=== PATIENT | male | born 1960 | race American Indian/Alaskan Native ===

== ENCOUNTER 2017-07-18 17:35 | Inpatient (IN) | payer OTHER ==
[2017-07-18] MEDS ORDERED: ASPIRIN PO ONE (18:38)
[2017-07-18 19:04] LABS: Basophils % (Auto) 0.3 % (0.0-1.8); Eosinophils % (Auto) 0.1 % (0.0-4.3); Hematocrit 44.2 % (35.5-45.6); Hemoglobin 14.5 gm/dl (11.8-15.2); Lymphocytes # (Auto) 0.5 K/mm3 (1.2-5.4); Lymphocytes % (Auto) 9.1 % (13.4-35.0); Mean Corpuscular HGB Conc 33 % (32-34); Mean Corpuscular Hemoglobin 32 pg (28-32); Mean Corpuscular Volume 97 fl (84-94); Monocytes # (Auto) 0.2 K/mm3 (0.0-0.8); Monocytes % (Auto) 3.9 % (0.0-7.3); Platelet Count 168 K/mm3 (140-440); Red Blood Count 4.55 M/mm3 (3.65-5.03); Red Cell Distribution Width 14.3 % (13.2-15.2)
[2017-07-18 19:25] LABS: Alanine Aminotransferase 14 units/L (7-56); Albumin 4.2 g/dL (3.9-5); BUN/Creatinine Ratio 18; Blood Urea Nitrogen 11 mg/dL (9-20); Calcium 8.1 mg/dL (8.4-10.2); Hemolysis Index 18; Lipase 53 units/L (13-60)
[2017-07-18] MEDS ORDERED: TYLENOL PO ONE (19:33)
--- NOTE | 2017-07-18 19:35 | Emergency Department Report ---
Chief Complaint: Chest Pain Stated Complaint: FLU LIKE SYMPTOMS Time Seen by Provider: 07/18/17 19:33 - HPI History of Present Illness: 57-year-old male presents with right-sided chest pain with cough. Pain occurs with inspiration. He also has mild nondescriptive abdominal pain. History of alcoholism. Last drink of alcohol last night - Exam Vital Signs: Vital Signs 07/18/17 18:29 Temperature 98.4 F Pulse Rate 80 Respiratory 18 Rate Blood Pressure 123/83 O2 Sat by Pulse 100 Oximetry MSE screening note: Focused history and physical exam performed. Due to findings the following was ordered: ED Medical Decision Making - Lab Data Result diagrams: 07/18/17 18:44 07/18/17 18:44 ED Disposition for MSE Condition: Stable
[2017-07-18 20:08] LABS: Bacteria,Urine 1+ /HPF (Negative); Bilirubin,Urine NEG (Negative); Blood,Urine MOD (Negative); Color,Urine Yellow (Yellow); Nitrite,Urine NEG (Negative); Protein,Urine <15 mg/dL mg/dL (Negative); Urobilinogen,Urine < 2.0 mg/dL (<2.0)
--- NOTE | 2017-07-18 21:39 | XRay Report ---
FINAL REPORT PROCEDURE: XR CHEST ROUTINE 2V TECHNIQUE: AP lateral chest x-ray HISTORY: chest pain COMPARISON: No prior studies are available for comparison. FINDINGS: Diffuse pulmonary emphysema with pleural thickening and or effusion left lower lung zone left lower lateral chest. Possible pleural mass or concatenation of rib shadows left lower lateral chest area measuring 1 x 3 centimeter. No prior x-rays on file. Consider followup CT chest. IMPRESSION: Pleural effusion and/or thickening left lower lung zone. Possible pleural based mass in the left lower lateral lung zone. No prior chest x-ray on file. Consider followup CT chest with without IV contrast
--- NOTE | 2017-07-18 21:54 | Emergency Department Report ---
HPI - General Chief Complaint: Chest Pain Time Seen by Provider: 07/18/17 19:33 - HPI HPI: Room 5 The patient is a 57-year-old male presenting with chief complaint of chest pain. The patient states yesterday he developed substernal chest pain that has been constant with a pleuritic component. The patient states his chest pain associated with shortness of breath, nausea and diaphoresis. Patient denies vomiting, fever or cough. Patient denies any recent flights or long car trips. The patient currently does his pain score of 5/10. The patient states he's never had a stress test or cardiac catheterization Location: Chest Duration: [See above] Quality: Sharp Severity:5/10 Modifying factors: [see above] Context: [see above] Mode of transportation: [not driving] ED Past Medical Hx - Past Medical History Hx Psychiatric Treatment: Yes (depression,alcohol abuse) Additional medical history: right knee - Surgical History Additional Surgical History: Right knee surgery, left chest tube secondary to traumatic pneumothorax - Family History Family history: no significant - Social History Smoking Status: Current Every Day Smoker (1/2 pack per day) Substance Use Type: None (denies illicit drug use), Alcohol (daily) - Medications Home Medications: Home Medications Medication Instructions Recorded Confirmed Last Taken Type No Known Home Medications [No 07/18/17 07/18/17 Unknown History Reported Home Medications] ED Review of Systems ROS: Stated complaint: FLU LIKE SYMPTOMS Other details as noted in HPI Constitutional: denies: fever Respiratory: shortness of breath Cardiovascular: chest pain Gastrointestinal: nausea. denies: vomiting Physical Exam - Physical Exam Vital Signs: Vital Signs 07/18/17 07/18/17 18:29 19:43 Temperature 98.4 F Pulse Rate 80 Respiratory 18 18 Rate Blood Pressure 123/83 O2 Sat by Pulse 100 Oximetry Physical Exam: GENERAL: The patient is well-developed well-nourished male lying on stretcher not appearing to be in acute distress. [] HEENT: Normocephalic. Atraumatic. Extraocular motions are intact. Patient has moist mucous membranes. NECK: Supple. Trachea midline CHEST/LUNGS: Clear to auscultation. There is no respiratory distress noted. HEART/CARDIOVASCULAR: Regular. There is no tachycardia. There is no gallop rub or murmur. ABDOMEN: Abdomen is soft, nontender. Patient has normal bowel sounds. There is no abdominal distention. SKIN: There is no rash. There is no edema. There is no diaphoresis. NEURO: The patient is awake, alert, and oriented. The patient is cooperative. The patient has normal speech MUSCULOSKELETAL: There is no evidence of acute injury. ED Course Vital Signs 07/18/17 07/18/17 18:29 19:43 Temperature 98.4 F Pulse Rate 80 Respiratory 18 18 Rate Blood Pressure 123/83 O2 Sat by Pulse 100 Oximetry ED Medical Decision Making - Lab Data Result diagrams: 07/18/17 18:44 07/18/17 18:44 Laboratory Tests 07/18/17 07/18/17 07/18/17 18:44 18:44 18:44 WBC 5.7 RBC 4.55 Hgb 14.5 Hct 44.2 MCV 97 H MCH 32 MCHC 33 RDW 14.3 Plt Count 168 Lymph % (Auto) 9.1 L Bland % (Auto) 3.9 Eos % (Auto) 0.1 Baso % (Auto) 0.3 Lymph # 0.5 L Bland # 0.2 Eos # 0.0 Baso # 0.0 Seg Neutrophils % 86.6 H Seg Neutrophils # 4.9 D-Dimer Sodium 138 Potassium 4.6 Chloride 99.7 Carbon Dioxide 23 Anion Gap 20 BUN 11 Creatinine 0.6 L Estimated GFR > 60 BUN/Creatinine Ratio 18 Glucose 86 Calcium 8.1 L Total Bilirubin 0.20 AST 27 ALT 14 Alkaline Phosphatase 89 Total Creatine Kinase Troponin T < 0.010 Total Protein 7.5 Albumin 4.2 Albumin/Globulin Ratio 1.3 Lipase 53 Urine Color Urine Turbidity Urine pH Ur Specific [place] Urine Protein Urine Glucose (UA) Urine Ketones Urine Blood Urine Nitrite Urine Bilirubin Urine Urobilinogen Ur Leukocyte Esterase Urine WBC (Auto) Urine RBC (Auto) U Epithel Cells (Auto) Urine Bacteria (Auto) 07/18/17 07/18/17 07/18/17 19:50 21:40 21:49 WBC RBC Hgb Hct MCV MCH MCHC RDW Plt Count Lymph % (Auto) Bland % (Auto) Eos % (Auto) Baso % (Auto) Lymph # Bland # Eos # Baso # Seg Neutrophils % Seg Neutrophils # D-Dimer Sodium Potassium Chloride Carbon Dioxide Anion Gap BUN Creatinine Estimated GFR BUN/Creatinine Ratio Glucose Calcium Total Bilirubin AST ALT Alkaline Phosphatase Total Creatine Kinase 277 H Troponin T < 0.010 Total Protein Albumin Albumin/Globulin Ratio Lipase Urine Color Yellow Urine Turbidity Clear Urine pH 6.0 Ur Specific [place] 1.032 H Urine Protein <15 mg/dl Urine Glucose (UA) >=500 Urine Ketones Neg Urine Blood Mod Urine Nitrite Neg Urine Bilirubin Neg Urine Urobilinogen < 2.0 Ur Leukocyte Esterase Neg Urine WBC (Auto) 1.0 Urine RBC (Auto) 8.0 U Epithel Cells (Auto) < 1.0 Urine Bacteria (Auto) 1+ 07/18/17 21:53 WBC RBC Hgb Hct MCV MCH MCHC RDW Plt Count Lymph % (Auto) Bland % (Auto) Eos % (Auto) Baso % (Auto) Lymph # Bland # Eos # Baso # Seg Neutrophils % Seg Neutrophils # D-Dimer 881.56 H Sodium Potassium Chloride Carbon Dioxide Anion Gap BUN Creatinine Estimated GFR BUN/Creatinine Ratio Glucose Calcium Total Bilirubin AST ALT Alkaline Phosphatase Total Creatine Kinase Troponin T Total Protein Albumin Albumin/Globulin Ratio Lipase Urine Color Urine Turbidity Urine pH Ur Specific [place] Urine Protein Urine Glucose (UA) Urine Ketones Urine Blood Urine Nitrite Urine Bilirubin Urine Urobilinogen Ur Leukocyte Esterase Urine WBC (Auto) Urine RBC (Auto) U Epithel Cells (Auto) Urine Bacteria (Auto) - EKG Data -: EKG Interpreted by Me EKG shows normal: sinus rhythm Rate: normal - EKG Data When compared to previous EKG there are: previous EKG unavailable Interpretation: nonspecific ST-T wave martir (trace ST depression in leads 2, 3, aVF) - Radiology Data Radiology results: report reviewed (CT chest), image reviewed (chest x-ray, CT chest) interpreted by me: Chest x-ray-no focal drift, no pneumothorax. Left costophrenic angle somewhat blunted FINAL REPORT EXAM: CT ANGIO CHEST HISTORY: chest pain, pleurisy TECHNIQUE: A CT angiogram was performed following the intravenous injection of iodinated contrast. Rotational, sagittal and coronal MIP reconstructions were reviewed. FINDINGS: There is no evidence of pulmonary embolus or aortic dissection. The heart size is normal. Pericardial fluid is not seen. There is no evidence of adenopathy. The thoracic aorta reveals mild aneurysmal dilatation of the ascending aorta measuring 3.3 cm in diameter. There are no localized infiltrates or effusions. There are multiple chronic well-healed left-sided rib fractures. In the upper abdomen the adrenal glands are the upper limits of normal in size. At the thoracic inlet the thyroid gland is not enlarged. There is multilevel disc degeneration in the thoracic spine. IMPRESSION: No evidence of pulmonary embolus or aortic dissection. No acute process in the chest. Multiple well-healed posterior left-sided rib fractures Transcribed By: RB Dictated By: DONNELL HUFFMAN MD Electronically Authenticated By: DONNELL HUFFMAN MD Signed Date/Time: 07/18/172010 DD/ 10 TD/TT: 07/18/172010 - Differential Diagnosis ACS, pericarditis, pneumonia, PE Critical care attestation.: If time is entered above; I have spent that time in minutes in the direct care of this critically ill patient, excluding procedure time. ED Disposition Clinical Impression: Chest pain, ST segment depression Disposition: OP ADMIT IP TO THIS HOSP Is pt being admited?: Yes Does the pt Need Aspirin: Yes Condition: Fair Instructions: Chest Pain (ED) Referrals: CHANTE CLARK MD [Primary Care Provider] - 3-5 Days Time of Disposition: 00:30
[2017-07-18] MEDS ORDERED: ZOFRAN IV ONE (21:58)
[2017-07-18] MEDS ORDERED: NITRO-BID 2% TP ONE (21:58)
[2017-07-18] MEDS ORDERED: MORPHINE IV ONE (21:58)
--- NOTE | 2017-07-19 00:13 | Cat Scan Report ---
FINAL REPORT EXAM: CT ANGIO CHEST HISTORY: chest pain, pleurisy TECHNIQUE: A CT angiogram was performed following the intravenous injection of iodinated contrast. Rotational, sagittal and coronal MIP reconstructions were reviewed. FINDINGS: There is no evidence of pulmonary embolus or aortic dissection. The heart size is normal. Pericardial fluid is not seen. There is no evidence of adenopathy. The thoracic aorta reveals mild aneurysmal dilatation of the ascending aorta measuring 3.3 cm in diameter. There are no localized infiltrates or effusions. There are multiple chronic well-healed left-sided rib fractures. In the upper abdomen the adrenal glands are the upper limits of normal in size. At the thoracic inlet the thyroid gland is not enlarged. There is multilevel disc degeneration in the thoracic spine. IMPRESSION: No evidence of pulmonary embolus or aortic dissection. No acute process in the chest. Multiple well-healed posterior left-sided rib fractures
[2017-07-19] MEDS ORDERED: ZOFRAN IV PRN (01:47)
[2017-07-19] MEDS ORDERED: MORPHINE IV PRN (01:47)
[2017-07-19] MEDS ORDERED: PROVENTIL IH PRN (01:47)
[2017-07-19] MEDS ORDERED: TYLENOL PO PRN (01:47)
[2017-07-19] MEDS ORDERED: MILK OF MAGNESIA PO PRN (01:47)
[2017-07-19] MEDS ORDERED: DULCOLAX PR PRN (01:47)
--- NOTE | 2017-07-19 01:55 | History and Physical Report ---
History of Present Illness Date of examination: 07/19/17 History of present illness: History 70-year-old man with a history of depression, alcohol abuse comes emergency room incontinence of chest pain that started on . Pain is in the right chest which he describes as sharp pain, intermittent nature, worse at present, intensity 4/10, no radiation and pain is relieved with morphine. Admits to shortness of breath, no fever chills cough Review Of Systems: Constitutional: no weight loss Ears, eyes, nose, mouth and throat: no nasal congestion, no nasal discharge, no sinus pressure, blurry vision, diplopia Neck: No neck pain or rigidity. Cardiovascular: No palpitations Respiratory: No cough Gastrointestinal: No abdominal pain, hematochezia Genitourinary : no dysuria, frequency , hematuria Musculoskeletal: no muscle ache Integumentary: no rash, no pruritis Neurological: no parathesias, focal weakness Endocrine: no cold or heat intolerance, no polyuria or polydipsia Hematologic/Lymphatic: no easy bruising, no easy bleeding, no gland swelling Allergic/Immunologic: no urticaria, no angioedema. PAST MEDICAL HISTORY:depression, alcohol abuse PAST SURGICAL HISTORY: Right knee FAMILY HISTORY: Hypertension SOCIAL HISTORY: Smokes half pack a day, drank 1 pint of liquor a day, no drugs Medications and Allergies Allergies Allergy/AdvReac Type Severity Reaction Status Date / Time No Known Allergies Allergy Unverified 07/18/17 18:33 Home Medications Medication Instructions Recorded Confirmed Last Taken Type No Known Home Medications [No 07/18/17 07/18/17 Unknown History Reported Home Medications] Exam - Physical Exam Narrative exam: Gen. appearance: Patient lying in bed in no acute distress HEENT: Normocephalic/atraumatic, pupils equal round reactive to light, extra occular movement intact, no scleral icterus, no JVD or thyromegaly or nodule, neck is supple, mucous membrane moist, no erythema or exudate Heart: S1-S2, regular rate and rhythm Lungs: Clear to auscultation bilateral breathing comfortable Abdomen: Positive bowel sounds, nontender, nondistended, no organomegaly Extremities: No edema, cyanosis, clubbing Neuro:: Oriented 3 , cranial nerves II-12 intact, speech, motor intact Skin: No rash, nodules, warm dry - Constitutional Vitals: Temp Pulse Resp BP Pulse Ox 99 F 82 10 L 119/75 100 07/18/17 22:11 07/19/17 01:01 07/19/17 01:01 07/19/17 01:01 07/19/17 01:01 Results - Labs CBC & Chem 7: 07/18/17 18:44 07/18/17 18:44 Labs: Abnormal lab results 07/18/17 07/18/17 07/18/17 Range/Units 18:44 18:44 19:50 MCV 97 H (84-94) fl Lymph % (Auto) 9.1 L (13.4-35.0) % Lymph # 0.5 L (1.2-5.4) K/mm3 Seg Neutrophils % 86.6 H (40.0-70.0) % D-Dimer (0-234) ng/mlDDU Creatinine 0.6 L (0.8-1.5) mg/dL Calcium 8.1 L (8.4-10.2) mg/dL Total Creatine Kinase (55-170) units/L Ur Specific [place] 1.032 H (1.003-1.030) 07/18/17 07/18/17 Range/Units 21:40 21:53 MCV (84-94) fl Lymph % (Auto) (13.4-35.0) % Lymph # (1.2-5.4) K/mm3 Seg Neutrophils % (40.0-70.0) % D-Dimer 881.56 H (0-234) ng/mlDDU Creatinine (0.8-1.5) mg/dL Calcium (8.4-10.2) mg/dL Total Creatine Kinase 277 H (55-170) units/L Ur Specific [place] (1.003-1.030) - Imaging and Cardiology EKG: image reviewed Chest x-ray: image reviewed CT scan - chest: report reviewed Assessment and Plan Assessment Chest pain, rule out ACS Depression Alcohol Abuse Plan Admit to medicine Check cardiac enzymes, stress tests Start aspirin, IV morphine, DVT prophylaxis
[2017-07-19 02:44] LABS: Creatine Kinase MB 4.3 ng/mL (0.0-4.0)
[2017-07-19 05:56] LABS: Creatine Kinase MB 4.1 ng/mL (0.0-4.0)
[2017-07-19] MEDS ORDERED: LEXISCAN IV ONE ×2 (07:56→08:18)
[2017-07-19] MEDS ORDERED: ASPIRIN PO SCH (10:00)
--- NOTE | 2017-07-19 11:24 | Discharge Summary ---
Providers - Providers Date of Admission: 07/19/17 01:48 Date of discharge: 07/19/17 Attending physician: BEBETO PATRICK Primary care physician: CHANTE CLARK Hospitalization Condition: Stable Hospital course: Patient is a 57-year-old man with history of depression, tobacco dependency and alcohol abuse who presented with chest pain. Patient drinks at least a pint of vodka daily, last alcoholic drink was around noon on Friday. Patient underwent thorough cardiac evaluation including a stress test and cardiac enzymes. -Chest pain related to muscle skeletal: Stress test negative will discharge -Alcohol abuse, not in withdrawal yet, less than 24 hours prior since last drink : He declined alcohol detox, he denies suicidal or homicidal -Tobacco dependency: Counseled stopping Disposition: DC-01 TO HOME OR SELFCARE Time spent for discharge: 32 min Core Measure Documentation - Palliative Care Palliative Care/ Comfort Measures: Not Applicable - Core Measures Any of the following diagnoses?: none - VTE Discharge Requirements Deep Vein Thrombosis/Pulmonary Embolism Present on Admission: No Has pt received <5 days of overlap therapy or INR<2.0: No Anticoagulant overlap therapy prescribed at discharge: No Contraindication No Overlap Therapy order at DC: Not Indicated Exam - Physical Exam Narrative exam: GEN: WDWN, NAD, AWAKE, ALERT, ORIENTATED 3 HEENT: NCAT, EOMI, PERRL, OP Clear NECK: supple, no adenopathy, no thyromegaly, no JVD CVS/HEART: RRR, NORMAL S1S2, NO JVD, pulses present bilaterally CHEST/LUNGS: CTA B, Symmetrical chest expansion, good air entry bilaterally, Reproducible substernal left-sided and right-sided chest wall tenderness GI/Abdomen: soft, NTND, good bowel sounds, no guarding or rebound /Bladder: no suprapubic tenderness, no CVA or paraspinal tenderness EXT/Skin: no c/c/e, no obvious rash MSK: FROM x 4 Neuro: CN 2-12 grossly intact, no new focal deficits, no tremors, not restless and able to complete stress test Psych: calm - Constitutional Vitals: Temp Pulse Resp BP Pulse Ox 98.4 F 68 20 128/73 97 07/19/17 07:49 07/19/17 07:49 07/19/17 07:49 07/19/17 07:49 07/19/17 09:00 Plan Activity: no driving until cleared by PCP, up only with assistance, fall precautions, other (no strenous activity until cleared by pcp) Diet: regular Special Instructions: smoking cessation Follow up with: CHANTE CLARK MD [Primary Care Provider] - 3-5 Days Prescriptions: Famotidine [Pepcid] 20 mg PO BID #30 tablet Thiamine [Vitamin B-1] 100 mg PO QDAY #30 tablet
[2017-07-19 12:46] LABS: Creatine Kinase MB 3.7 ng/mL (0.0-4.0)
--- NOTE | 2017-07-20 07:49 | Treadmill Report ---
NUCLEAR PERFUSION SCAN REFERRING PHYSICIAN: Otilia Castellanos MD and Chaka Quick MD. PROTOCOL: The patient was brought to the stress lab in a postabsorptive state, given 10 mCi of the 99m technetium at rest. The patient underwent rest imaging. The patient underwent Lexiscan stress test per standard protocol. At peak stress, the patient was given 28 mCi of technetium 99m. Shortly thereafter, the patient underwent stress imaging. Raw imaging reveals mild GI artifact, no significant motion artifact. SPECT imaging examined carefully in horizontal long axis, vertical long axis, and short axis views. There is normal homogenous uptake of radioisotope in all reported segments. No evidence of a significant fixed or reversible perfusion defect suggestive of prior infarction or active ischemia. Gated wall motion reveals normal systolic thickening, calculated ejection fraction of 63%. No TID. CONCLUSIONS: 1. Normal myocardial perfusion scan without evidence of active ischemia or prior infarction. 2. Normal left ventricular systolic performance without evidence of transient ischemic dilatation or stress-induced segmental wall motion abnormalities. JOB# [id number] BIMAL/MERLE
[2017-07-20 08:28] VITALS: BP 127/69
== END 2017-07-19 14:52 | disposition home or self-care (01) | DRG 313 ==
LOC: ED 17:35 → 4A 07-19 01:48
PROVIDERS: ADMIT Internal Medicine; ATTEND Internal Medicine
DX: R07.89 Other chest pain (principal); F10.20 Alcohol dependence, uncomplicated; Y90.9 Presence of alcohol in blood, level not specified; F32.9 Major depressive disorder, single episode, unspecified; F17.200 Nicotine dependence, unspecified, uncomplicated; Z82.49 Family history of ischemic heart disease and other diseases of the circulatory system
CPT/HCPCS: 36415; 71046; 71275; 78452; 80053; 81001; 82550; 82553; 83690; 84484; 85025; 85379; 93005; 93010; 93017; A9502; J2270; J2405; J2785; Q9967

== ENCOUNTER 2017-10-01 03:12 | Emergency (ER) | payer SELFPAY ==
[2017-10-01] MEDS ORDERED: HALDOL ONE (03:56)
[2017-10-01] MEDS ORDERED: ATIVAN ONE (03:56)
[2017-10-01] MEDS ORDERED: ATIVAN IM PRN (04:02)
[2017-10-01] MEDS ORDERED: HALDOL IM PRN (04:02)
--- NOTE | 2017-10-01 04:03 | Emergency Department Report ---
<CHANTE SERRATO - Last Filed: 10/01/17 05:20> ED Alcohol HPI - General Chief Complaint: Alcohol Stated Complaint: ETOH Time Seen by Provider: 10/01/17 03:53 Source: police, EMS (ems notes not available at time of chart dictation), RN notes reviewed, old records reviewed Mode of arrival: Ambulatory Limitations: Other (patient has alcohol intoxication) - History of Present Illness Initial Comments: This is a 57-year-old male who was previously unknown to this provider, as per review of old medical records has a history of depression, tobacco dependency, alcohol abuse. Patient was apparently found on local public transportation [place] and was kicked and police were called. As per triage nurse documentation "police did not want to deal with patients so he was brought here." The patient is too drunk to comment on any additional history. At some points during his initial examination, the patient is stating "kiss my ass Man!" MD Complaint: alcohol intoxication Last Drink: unknown Chronic Alcohol Use: Yes Previous Visits for Alcohol Intoxication?: Yes Associated Symptoms: other (patient is too drunk to,) Treatments Prior to Arrival: other (EMS notes not available at this time) - Related Data Previous Rx's Medication Instructions Recorded Last Taken Type Acetaminophen [Acetaminophen TAB] 325 mg PO Q6H PRN #30 tablet 07/19/17 Unknown Rx Famotidine [Pepcid] 20 mg PO BID #30 tablet 07/19/17 Unknown Rx Thiamine [Vitamin B-1] 100 mg PO QDAY #30 tablet 07/19/17 Unknown Rx Allergies Allergy/AdvReac Type Severity Reaction Status Date / Time No Known Allergies Allergy Unverified 07/18/17 18:33 ED Review of Systems ROS: Stated complaint: ETOH Other details as noted in HPI Comment: Unobtainable due to pts medical conditions ED Past Medical Hx - Past Medical History Hx Hypertension: Yes Hx Congestive Heart Failure: No Hx Diabetes: No Hx Psychiatric Treatment: Yes (depression,alcohol abuse) Hx Asthma: Yes Hx COPD: No Additional medical history: right knee - Surgical History Additional Surgical History: Right knee surgery, left chest tube secondary to traumatic pneumothorax - Social History Smoking Status: Unknown if ever smoked Substance Use Type: Alcohol - Medications Home Medications: Home Medications Medication Instructions Recorded Confirmed Last Taken Type Acetaminophen [Acetaminophen TAB] 325 mg PO Q6H PRN #30 tablet 07/19/17 Unknown Rx Famotidine [Pepcid] 20 mg PO BID #30 tablet 07/19/17 Unknown Rx Thiamine [Vitamin B-1] 100 mg PO QDAY #30 tablet 07/19/17 Unknown Rx ED Physical Exam - General Limitations: Other (alcohol intoxication) General appearance: appears intoxicated - Head Head exam: Present: atraumatic, normocephalic - Eye Eye exam: Present: normal appearance, PERRL, EOMI. Absent: nystagmus - ENT ENT exam: Present: normal exam, normal orophraynx, mucous membranes moist - Neck Neck exam: Present: normal inspection, full ROM - Respiratory Respiratory exam: Present: normal lung sounds bilaterally. Absent: respiratory distress, chest wall tenderness - Cardiovascular Cardiovascular Exam: Present: regular rate, normal rhythm, normal heart sounds. Absent: systolic murmur, diastolic murmur, rubs, gallop - GI/Abdominal GI/Abdominal exam: Present: soft, normal bowel sounds. Absent: distended, tenderness, guarding, rebound, rigid, pulsatile mass - Rectal Rectal exam: Present: deferred - Extremities Exam Extremities exam: Present: full ROM, normal capillary refill, other (2+ pulses noted in the bilateral upper and lower extremities. The compartments are soft. Evidence of old right sided knee arthroplasty is appreciated.). Absent: pedal edema, joint swelling, calf tenderness - Back Exam Back exam: Present: normal inspection, full ROM. Absent: tenderness, CVA tenderness (R), paraspinal tenderness - Neurological Exam Neurological exam: Present: altered, other (patient has no facial droop. He is speaking nonsensically. He is moving 4 extremities spontaneously. Unable to assess sensation secondary to alcohol intoxication) - Psychiatric Psychiatric exam: Present: anxious. Absent: homicidal ideation, suicidal ideation - Skin Skin exam: Present: warm, dry, intact, normal color. Absent: rash ED Course Vital Signs 10/01/17 10/01/17 10/01/17 03:28 03:46 10:53 Temperature 98.1 F 97.8 F Pulse Rate 67 68 Respiratory 18 18 18 Rate Blood Pressure 163/105 Blood Pressure 163/105 123/77 [Left] O2 Sat by Pulse 98 97 Oximetry - Reevaluation(s) Reevaluation #1: 10/01/17 05:23 Differential diagnosis, including the not limited to: Alcohol intoxication, intracranial injury, cervical spine injury Assessment and plan: 57-year-old male who is intoxicated. Noncontrast CT scan of brain and cervical spine have been ordered. The patient is agitated, and required Haldol and Ativan for his safety. He is medicated and observed as per staff and hospital protocol. He is placed on the 2012. He does not meet 1013 criteria. Care is transferred to the oncoming ER physician, Dr. Stephanie Bauman; she will follow up on his CT scan of the brain and cervical spine, and reassess for clinical sobriety. ED Medical Decision Making - Lab Data Result diagrams: 10/01/17 04:36 10/01/17 04:36 Vital Signs 10/01/17 10/01/17 03:28 03:46 Temperature 98.1 F Pulse Rate 67 Respiratory 18 18 Rate Blood Pressure 163/105 Blood Pressure 163/105 [Left] O2 Sat by Pulse 98 Oximetry Temp Pulse Resp BP Pulse Ox 98.1 F 67 18 163/105 98 10/01/17 03:28 10/01/17 03:28 10/01/17 03:46 10/01/17 03:28 10/01/17 03:28 Labs 10/01/17 10/01/17 10/01/17 04:36 04:36 04:36 [place] % (Auto) 6.7 Eos % (Auto) 0.3 [place] # 0.3 Eos # 0.0 Baso # 0.0 Seg Neutrophils % 55.3 Seg Neutrophils # 2.4 Sodium 147 H Potassium 3.7 Chloride 103.0 Carbon Dioxide 27 Anion Gap 21 BUN 8 L Creatinine 0.6 L Estimated GFR > 60 BUN/Creatinine Ratio 13 Glucose 87 Calcium 7.9 L Salicylates Plasma/Serum Alcohol 0.38 H 10/01/17 04:36 [place] % (Auto) Eos % (Auto) [place] # Eos # Baso # Seg Neutrophils % Seg Neutrophils # Sodium Potassium Chloride Carbon Dioxide Anion Gap BUN Creatinine Estimated GFR BUN/Creatinine Ratio Glucose Calcium Salicylates < 0.3 L Plasma/Serum Alcohol - Radiology Data Radiology results: pending Critical care attestation.: If time is entered above; I have spent that time in minutes in the direct care of this critically ill patient, excluding procedure time. ED Disposition Clinical Impression: Alcohol intoxication, Alcohol abuse Disposition: DC-01 TO HOME OR SELFCARE Condition: Stable Instructions: Abuse of Alcohol (ED) Additional Instructions: Follow up with [facility] if he desired help with alcohol or substance abuse. Return if symptoms worsen as indicated by the discharge instructions. [facility] - [facility] <SUNG BAUMAN - Last Filed: 10/01/17 14:48> ED Course - Reevaluation(s) Reevaluation #2: 10/01/17 14:37 As of 12:26 patient's alcohol level is still elevated at 0.22 well above the legal limit. Patient has stable gait and normal mental status however he does not have a ride home and intends to ride the bus. Therefore patient is to be clinically sober and have a alcohol level safely discharged. CIWA protocol was ordered by admission physician. One dose of Ativan given by myself by mouth to avoid withdrawal symptoms while we await sobriety. Patient is at risk for alcohol withdrawal symptoms given chronic alcoholism. Pt will need to be signed out to oncoming physician. Reevaluation #3: 10/01/17 14:46 Patient is currently calm and cooperative. Denies any complaints. Gait was steady. He was informed that have to wait until his alcohol level comes down. He is agreeable to this. No signs of tremors or withdrawal symptoms at this time. ED Medical Decision Making - Lab Data Result diagrams: 10/01/17 04:36 10/01/17 04:36 ED Disposition Is pt being admited?: No Does the pt Need Aspirin: No
[2017-10-01 05:08] LABS: BUN/Creatinine Ratio 13; Blood Urea Nitrogen 8 mg/dL (9-20); Calcium 7.9 mg/dL (8.4-10.2); Hemolysis Index 11
[2017-10-01 05:15] LABS: Basophils % (Auto) 0.3 % (0.0-1.8); Eosinophils % (Auto) 0.3 % (0.0-4.3); Hematocrit 41.8 % (35.5-45.6); Lymphocytes # (Auto) 1.6 K/mm3 (1.2-5.4); Lymphocytes % (Auto) 37.4 % (13.4-35.0); Mean Corpuscular HGB Conc 33 % (32-34); Mean Corpuscular Hemoglobin 32 pg (28-32); Mean Corpuscular Volume 95 fl (84-94); Monocytes # (Auto) 0.3 K/mm3 (0.0-0.8); Monocytes % (Auto) 6.7 % (0.0-7.3); Platelet Count 120 K/mm3 (140-440); Red Blood Count 4.39 M/mm3 (3.65-5.03); Red Cell Distribution Width 14.2 % (13.2-15.2)
--- NOTE | 2017-10-01 06:20 | Cat Scan Report ---
FINAL REPORT EXAM: CT HEAD/BRAIN WO CON HISTORY: alcohol intox, ams, ? traum,a TECHNIQUE: Routine axial imaging was obtained of the brain without IV contrast. FINDINGS: There [id number] generalized atrophy. There is no evidence of acute stroke or hemorrhage. The ventricular system is appropriate in size and is symmetric. The basal cisterns appear normal. The visualized sinuses are clear. The mastoid air cells are well pneumatized. The calvarium appears intact. IMPRESSION: [id number] generalized atrophy. No acute intracranial process.
--- NOTE | 2017-10-01 06:24 | Cat Scan Report ---
FINAL REPORT EXAM: CT CERVICAL SPINE WO CON HISTORY: alcohol intox, ams, ? traum,a TECHNIQUE: Routine axial imaging was obtained of the cervical spine without IV contrast with sagittal and coronal reconstructions. FINDINGS: There is reversal of the usual cervical lordosis secondary to patient positioning versus spasm. There is severe narrowing of the C3-C4, C4-C5, C5-C6, C6-C7 and C7-T1 disc with large anterior osteophytes. There is no evidence of fracture. There is varying degrees of facet arthropathy changes bilaterally with varying degrees of neural foraminal impingement. The prevertebral soft tissues appear intact. C1-C2 articulation reveals mild to moderate arthritic changes. IMPRESSION: Extensive degenerative arthritic changes throughout the cervical spine as described. No acute fracture identified.
[2017-10-01] MEDS ORDERED: ATIVAN PO ONE (13:35)
[2017-10-01 18:38] VITALS: BP 132/84
== END 2017-10-01 18:14 | disposition home or self-care (01) ==
LOC: ED 03:12 → EEVIPCON 03:12 → ED 18:14
DX: F10.129 Alcohol abuse with intoxication, unspecified (principal); I10 Essential (primary) hypertension; F32.9 Major depressive disorder, single episode, unspecified; J45.909 Unspecified asthma, uncomplicated
CPT/HCPCS: 36415; 70450; 72125; 80048; 82550; 83735; 85025; 96372; 99284; G0480; J1630; J2060; 80320